=== PATIENT | female | born 1980 | race Caucasian/White ===

== ENCOUNTER 2018-04-03 11:45 | Emergency (ER) | payer MEDICAID ==
[~2018-04-03] VITALS: Ht 167.6 cm; Wt 77.1 kg
[2018-04-03 12:04] VITALS: BP 140/86
--- NOTE | 2018-04-03 12:10 | NUR ---
BIB SELF. C/O SMALL AMOUNT BROWNISH VAGINAL BLEEDING WITH LOWER ABDOMINAL DISCOMFORT X THIS AM. ; LAST MENSTRUAL 02/16/2018. DENIES N/V/D; SKIN IS PINK/WARM/DRY; AAOX4 WITH EVEN AND STEADY GAIT; LUNGS CLEAR BL; HR EVEN AND REGULAR; PT DENIES ANY FEVER, CP, SOB, OR COUGH AT THIS TIME; PATIENT STATES PAIN OF 6/10 AT THIS TIME; VSS; PATIENT POSITIONED FOR COMFORT; HOB ELEVATED; BEDRAILS UP X2; BED DOWN. ER MD MADE AWARE OF PT STATUS.
[2018-04-03 12:50] LABS: BASOPHILS % (AUTO) 0.3 % (0.0-2.0); EOSINOPHILS # (AUTO) 0.2 K/uL (0-0.4); EOSINOPHILS % (AUTO) 1.2 % (0.0-4.0); HEMOGLOBIN 13.9 g/dL (12.0-16.0); LYMPHOCYTES # (AUTO) 2.4 K/uL (2.5-16.5); LYMPHOCYTES % (AUTO) 17.3 % (20.5-51.1); MEAN CORPUSCULAR HEMOGLOBIN 31 pg (27-31); MEAN CORPUSCULAR HGB CONC 34 g/dL (33-37); MEAN CORPUSCULAR VOLUME 89.8 fL (80-94); MONOCYTES # (AUTO) 0.7 K/uL (0.8-1.0); MONOCYTES % (AUTO) 4.8 % (1.7-9.3); NEUTROPHILS # (AUTO) 10.6 K/uL (1.8-7.7); NEUTROPHILS % (AUTO) 76.4 % (42.2-75.2); PLATELET COUNT (AUTO) 306 K/uL (140-450); RED BLOOD CELL COUNT(AUTO) 4.57 MIL/uL (4.20-5.40); RED CELL DISTRIBUTION WIDTH 13.2 % (11.6-13.7); WHITE BLOOD COUNT (AUTO) 13.9 K/uL (4.8-10.8)
--- NOTE | 2018-04-03 13:13 | NUR ---
PT RESTING IN NO APPEARENT DISTRESS WILL CONTINUE TO MONITOR.
[2018-04-03 14:18] LABS: APPEARANCE,URINE CLOUDY (CLEAR); BILIRUBIN,URINE NEGATIVE (NEGATIVE); BLOOD, URINE 3+ (NEGATIVE); COLOR,URINE RED (YELLOW); LEUKOCYTE ESTERASE ,URINE TRACE (NEGATIVE); NITRITE, URINE NEGATIVE (NEGATIVE); PH,URINE 6.5 (5.0-9.0); UGLUCOSE NEGATIVE (NEGATIVE)
[2018-04-03 14:35] LABS: RBC,URINE >100 /HPF (0-5); WBC,URINE 0-5 (RARE) /HPF (0-5)
[2018-04-03 15:56] VITALS: BP 135/84
--- NOTE | 2018-04-03 15:56 | NUR ---
Left without discharge paperwork. Ambulatory with steady gait. Advised to follow up with PMD.
== END 2018-04-03 15:56 | disposition home or self-care (01) ==
LOC: MED 11:45
DX: O20.0 Threatened abortion (principal); Z3A.08 8 weeks gestation of pregnancy
CPT/HCPCS: 36415; 76817; 81001; 81025; 84702; 85025; 86900; 86901; 87086; 99285; Q0092